=== PATIENT | female | born 1995 | race Two or more races ===

== ENCOUNTER 2019-08-03 15:32 | Observation (INO) | payer MEDICAID, OTHER ==
[~2019-08-03] VITALS: Ht 162.6 cm; Wt 96.6 kg
[2019-08-03] MEDS ORDERED: PNV1TABL50 MT (17:05)
== END 2019-08-03 17:10 | disposition home or self-care (01) ==
LOC: 8 EST LDRP 15:32
PROVIDERS: ADMIT Obstetrics & Gynecology; ATTEND Obstetrics & Gynecology
DX: O62.9 Abnormality of forces of labor, unspecified (principal); Z3A.38 38 weeks gestation of pregnancy
CPT/HCPCS: 99281; G0378

== ENCOUNTER 2019-08-08 09:13 | Inpatient (IN) | payer MEDICAID, OTHER ==
[~2019-08-08] VITALS: Ht 162.6 cm; Wt 98.0 kg
[~2019-08-08 09:13] MED LIST: PNV1TABL50 MT
[2019-08-08] MEDS ORDERED: LIDOCAINE HCL 2%/EPINEPHRINE 1:100,000 20 ML VIAL INFIL ONE (09:23)
[2019-08-08] MEDS ORDERED: EPHEDRINE SULFATE 50MG/ML VIAL ONE (09:23)
[2019-08-08] MEDS ORDERED: LACTATED RINGERS 1,000 ML IV SCH (09:25)
[2019-08-08] MEDS ORDERED: BUTORPHANOL TARTRATE 2 MG/ML VIAL IV PRN ×2 (09:30)
[2019-08-08] MEDS ORDERED: NALOXONE HCL 0.4 MG/ML 1ML VIAL IM PRN (09:30)
[2019-08-08] MEDS ORDERED: CARBOPROST TROMETHAMINE 250 MCG/ML AMPUL IM PRN (09:30)
[2019-08-08] MEDS ORDERED: LIDOCAINE HCL 1% 20ML VIAL (Pyxis) INJ INFIL SCH (09:30)
[2019-08-08] MEDS ORDERED: METHYLERGONOVINE MALEATE 0.2 MG/ML IM PRN (09:30)
[2019-08-08] MEDS ORDERED: ROPIVACAINE HCL/PF EPIDURAL 200 ML EPI SCH (10:15)
[2019-08-08] MEDS: DEXT 5%/LACTATED RINGERS 1,000 ML IV SCH ×2 (10:57→17:16)
[2019-08-08] MEDS: DEXT 5%/LR + PITOCIN 20UNITS/L 1,000 ML IV SCH (11:05)
[2019-08-08 11:35] LABS: BASOPHILS % 0.2 % (0.0-2.0); EOSINOPHILS % 0.5 % (0.0-5.0); HEMATOCRIT. 33.8 % (36.0-48.0); HEMOGLOBIN. 11.5 g/dL (12.0-16.0); MEAN CORPUSCULAR HEMOGLOBIN 30.6 pg (28.0-32.0); MEAN CORPUSCULAR VOLUME 90.3 fL (81.0-99.0); NEUTROPHILS % 77.3 % (40.0-76.0); PLATELET 209 x1000/uL (130-400); RED BLOOD CELL COUNT 3.74 mill/uL (4.2-5.4); RED CELL DISTRIBUTION WIDTH 15.2 % (11.6-14.6)
[2019-08-08 11:45] LABS: PARTIAL THROMBOPLASTIN TIME 29.2 sec (23.4-31.0); PROTHROMBIN TIME 9.9 sec (9.6-11.0)
[2019-08-08 12:23] LABS: CLARITY URINE CLOUDY (CLEAR); COLOR URINE YELLOW (YELLOW); KETONES URINE NEGATIVE (NEGATIVE); LEUKOCYTE ESTERASE URINE 1+ (NEGATIVE); NITRITE URINE NEGATIVE (NEGATIVE); OCCULT BLOOD URINE NEGATIVE (NEGATIVE); PH URINE 7.5 (4.5-8.0); PROTEIN URINE NEGATIVE (NEGATIVE); SPECIFIC GRAVITY URINE 1.019 (1.005-1.030); UROBILINOGEN URINE 0.2 E.U./dL (0.2-1.0)
[2019-08-08 12:49] LABS: *BARBITURATES SCREEN URINE NEGATIVE (NEGATIVE); *BENZODIAZEPINES SCREEN URINE NEGATIVE (NEGATIVE)
[2019-08-08 12:50] LABS: *AMPHETAMINES SCREEN URINE NEGATIVE (NEGATIVE); *COCAINE SCREEN URINE NEGATIVE (NEGATIVE); CANNABINOID URINE SCREEN NEGATIVE (NEGATIVE); METHADONE URINE SCREEN NEGATIVE (NEGATIVE); OPIATES URINE SCREEN NEGATIVE (NEGATIVE); PHENCYCLIDINE URINE SCREEN NEGATIVE (NEGATIVE)
[2019-08-08 13:04] LABS: HEPATITIS B SURFACE ANTIGEN NEGATIVE
[2019-08-08] MEDS ORDERED: ACETAMINOPHEN 500MG TABLET PO NR (14:45)
[2019-08-09] MEDS: DEXT 5%/LR + PITOCIN 20UNITS/L 1,000 ML IV SCH (04:13)
[2019-08-09] MEDS ORDERED: DEXT 5%/LR + PITOCIN 20UNITS/L 1,000 ML IV SCH (06:38)
[2019-08-09 06:45] VITALS: BP 106/60
[2019-08-09] MEDS ORDERED: ACETAMINOPHEN WITH CODEINE 300/30MG TABLET PO PRN ×2 (06:45)
[2019-08-09] MEDS ORDERED: BENZOCAINE/LANOLIN/ALOE VERA SPRAY TOP PRN (06:45)
[2019-08-09] MEDS ORDERED: DIPHENHYDRAMINE 25MG CAPSULE PO PRN (06:45)
[2019-08-09] MEDS ORDERED: HEMORRHOIDAL SUPP PR PRN (06:45)
[2019-08-09] MEDS ORDERED: RHO(D) IMMUNE GLOBULIN 300 MCG/SYR IM PRN (06:45)
[2019-08-09] MEDS ORDERED: BISACODYL 10MG SUPP PR PRN (06:45)
[2019-08-09] MEDS ORDERED: GLYCERIN/WITCH HAZEL LEAF MEDICATED PAD TOP PRN (06:45)
[2019-08-09 08:00] VITALS: BP 100/59
[2019-08-09] MEDS: IBUPROFEN 400MG TABLET PO PRN (16:27)
[2019-08-09] MEDS: PRENATAL VIT/FE FUMARATE/FA TABLET PO SCH (16:27)
[2019-08-09 16:53] VITALS: BP 109/65
[2019-08-09 20:00] VITALS: BP 112/70
[2019-08-09] MEDS: SIMETHICONE 80MG TABLET CHEW PO SCH (21:00)
[2019-08-09] MEDS: DOCUSATE SODIUM 100MG CAPSULE PO SCH (21:00)
[2019-08-09] MEDS: MAGNESIUM/ALUMINUM HYDROXIDE/SIMETHICONE 30ML UDC PO SCH (21:00)
[2019-08-10] VITALS: BP 110/69
[2019-08-10 07:06] LABS: BASOPHILS % 0.3 % (0.0-2.0); EOSINOPHILS % 1.2 % (0.0-5.0); HEMATOCRIT. 31.4 % (36.0-48.0); HEMOGLOBIN. 10.3 g/dL (12.0-16.0); LYMPHOCYTES % 25.2 % (20.0-50.0); MEAN CORPUSCULAR HEMOGLOBIN 30.1 pg (28.0-32.0); MEAN CORPUSCULAR VOLUME 91.5 fL (81.0-99.0); MEAN PLATELET VOLUME 8.8 fl (7.4-10.4); MONOCYTES % 5.1 % (2.0-8.0); NEUTROPHILS % 68.2 % (40.0-76.0); PLATELET 188 x1000/uL (130-400); RED BLOOD CELL COUNT 3.43 mill/uL (4.2-5.4); RED CELL DISTRIBUTION WIDTH 15.5 % (11.6-14.6)
[2019-08-10 09:00] VITALS: BP 99/57
[2019-08-10] MEDS: SIMETHICONE 80MG TABLET CHEW PO SCH ×3 (09:09→23:20)
[2019-08-10] MEDS: PRENATAL VIT/FE FUMARATE/FA TABLET PO SCH (09:10)
[2019-08-10] MEDS: FERROUS SULFATE 325MG TABLET PO SCH ×2 (09:10→17:48)
[2019-08-10] MEDS ORDERED: INFLUENZA VIRUS VACCINE(AFLURIA) 0.5ML SYR IM ONE (15:30)
[2019-08-10] MEDS ORDERED: MEASLES,MUMPS&RUBELLA VACCINE 1 VIAL SUBCUT ONE (15:45)
[2019-08-10 16:47] VITALS: BP 97/60
[2019-08-10] MEDS: MAGNESIUM/ALUMINUM HYDROXIDE/SIMETHICONE 30ML UDC PO SCH ×2 (17:49→23:19)
[2019-08-10 20:00] VITALS: BP 102/61
[2019-08-10] MEDS: DOCUSATE SODIUM 100MG CAPSULE PO SCH (23:21)
[2019-08-10] MEDS: IBUPROFEN 400MG TABLET PO PRN (23:21)
[2019-08-11] VITALS: BP 96/60
[2019-08-11 04:00] VITALS: BP 103/59
[2019-08-11 08:00] VITALS: BP 114/64
[2019-08-11] MEDS: FERROUS SULFATE 325MG TABLET PO SCH (08:29)
[2019-08-11] MEDS: MAGNESIUM/ALUMINUM HYDROXIDE/SIMETHICONE 30ML UDC PO SCH (08:29)
[2019-08-11] MEDS: PRENATAL VIT/FE FUMARATE/FA TABLET PO SCH (08:30)
[2019-08-11] MEDS: SIMETHICONE 80MG TABLET CHEW PO SCH (08:30)
== END 2019-08-11 12:50 | disposition home or self-care (01) | DRG 560 ==
LOC: 8 EST LDRP 09:13 → OBSVTOIN 09:13 → 8 EST LDRP 10:21 → 8EST 08-09 05:30
PROVIDERS: ADMIT Obstetrics & Gynecology; ATTEND Obstetrics & Gynecology
PROC: 10E0XZZ Delivery of Products of Conception, External Approach (ICD-10-PCS; principal; 2019-08-09)
PROC: 3E0R3BZ Introduction of Anesthetic Agent into Spinal Canal, Percutaneous Approach (ICD-10-PCS; 2019-08-09)
PROC: 00HU33Z Insertion of Infusion Device into Spinal Canal, Percutaneous Approach (ICD-10-PCS; 2019-08-09)
DX: O69.81X0 Labor and delivery complicated by cord around neck, without compression, not applicable or unspecified (principal); D62 Acute posthemorrhagic anemia; O99.02 Anemia complicating childbirth; Z37.0 Single live birth; Z3A.39 39 weeks gestation of pregnancy
CPT/HCPCS: 36415; 80305; 81003; 86592; 86703; 86762; 86850; 86900; 87340; 90686; 90707; G0378; J2590; J2795; J3490; J7121; Q0163; A4315